=== PATIENT | female | born 1940 | race Caucasian/White ===

== ENCOUNTER 2017-01-25 18:31 | Emergency (ER) | payer MEDICARE, OTHER ==
[2017-01-25 18:40] VITALS: BP 159/56
--- NOTE | 2017-01-25 19:08 | ER Document Report ---
ED General - General Chief Complaint: Fall Injury Stated Complaint: FALL RIGHT ARM LACERATION Time Seen by Provider: 01/25/17 19:07 TRAVEL OUTSIDE OF THE [place] IN LAST 30 DAYS: No - HPI Patient complains to provider of: fall skin tear Notes: Patient coming in for evaluation after a fall patient states tripped and fall landing on a landscape timber causing a skin tear to the right forearm. Patient denies any other injuries except for small area on her bottom lip right side where she bit no loss consciousness patient and will treat here no fevers chills nausea vomiting - Related Data Allergies/Adverse Reactions: amoxicillin Allergy (Verified 01/25/17 18:35) Past Medical History - Social History Smoking Status: Never Smoker Chew tobacco use (# tins/day): No Frequency of alcohol use: None Drug Abuse: None Family History: Reviewed & Not Pertinent Patient has suicidal ideation: No Patient has homicidal ideation: No - Past Medical History Cardiac Medical History: Reports: Hx Hypertension Renal/ Medical History: Denies: Hx Peritoneal Dialysis Musculoskeltal Medical History: Reports Hx Arthritis Past Surgical History: Reports: Hx Appendectomy - 1961, Hx Cholecystectomy - 1995, Hx Hysterectomy, Hx Orthopedic Surgery - rt shoulder - Immunizations Hx Diphtheria, Pertussis, Tetanus Vaccination: - unknown Review of Systems - Review of Systems Constitutional: No symptoms reported EENT: No symptoms reported Cardiovascular: No symptoms reported Respiratory: No symptoms reported Gastrointestinal: No symptoms reported Genitourinary: No symptoms reported Female Genitourinary: No symptoms reported Musculoskeletal: No symptoms reported Skin: Other - Skin tear Hematologic/Lymphatic: No symptoms reported Neurological/Psychological: No symptoms reported Physical Exam - Vital signs Vitals: Temp Pulse Resp BP Pulse Ox 97.5 F 64 16 159/56 H 99 01/25/17 18:38 01/25/17 18:38 01/25/17 18:38 01/25/17 18:38 01/25/17 18:38 Interpretation: Normal - General General appearance: Appears well, Alert - HEENT Head: Normocephalic, Atraumatic Eyes: Normal Pupils: PERRL - Respiratory Respiratory status: No respiratory distress Chest status: Nontender Breath sounds: Normal Chest palpation: Normal - Cardiovascular Rhythm: Regular Heart sounds: Normal auscultation Murmur: No - Abdominal Inspection: Normal Distension: No distension Bowel sounds: Normal Tenderness: Nontender Organomegaly: No organomegaly - Back Back: Normal, Nontender - Extremities General upper extremity: Nontender, Normal color, Normal ROM, Normal temperature. No: Normal inspection - Patient will large skin tear approximately 3-4 cm x 7-10 cm. There is no skin. There is no deep lacerations. Cap refill is intact sensation is intact distally. Left arm unaffected General lower extremity: Normal inspection, Nontender, Normal color, Normal ROM , Normal temperature, Normal weight bearing. No: Deb's sign - Neurological Neuro grossly intact: Yes Cognition: Normal Orientation: AAOx4 Caprice Coma Scale Eye Opening: Spontaneous Caprice Coma Scale Verbal: Oriented Caprice Coma Scale Motor: Obeys Commands Caprice Coma Scale Total: 15 Speech: Normal Motor strength normal: LUE, RUE, LLE, RLE Sensory: Normal - Psychological Associated symptoms: Normal affect, Normal mood - Skin Skin Temperature: Warm Skin Moisture: Dry Skin Color: Normal Course - Re-evaluation Re-evalutation: 01/25/17 20:57 Patient large skin tear this was treated with Steri-Strips and a dictation of left her skin. Patient was dressed antibiotic ointment applied patient was discharged - Vital Signs Vital signs: Temp Pulse Resp BP Pulse Ox 97.5 F 64 16 159/56 H 99 01/25/17 18:38 01/25/17 18:38 01/25/17 18:38 01/25/17 18:38 01/25/17 18:38 Discharge - Discharge Clinical Impression: Skin tear Condition: Good Disposition: HOME, SELF-CARE Instructions: Skin Tear ([facility]) Additional Instructions: Please change the dressing once a day. Return to the ER or see your physician there looks to be signs of infection drainage redness Referrals: ANNMARIE TALLEY DO [Primary Care Provider] - Follow up as needed
== END 2017-01-25 19:09 | disposition home or self-care (01) ==
LOC: ER 18:31
DX: S51.811A Laceration without foreign body of right forearm, initial encounter (principal); W01.198A Fall on same level from slipping, tripping and stumbling with subsequent striking against other object, initial encounter; Y93.H2 Activity, gardening and landscaping; I10 Essential (primary) hypertension; Z88.0 Allergy status to penicillin
CPT/HCPCS: 99283